=== PATIENT | female | born 1960 | race Caucasian/White ===

== ENCOUNTER 2017-10-10 11:37 | Emergency (ER) | payer BC ==
[2017-10-10 13:10] VITALS: BP 154/84
--- NOTE | 2017-10-10 13:38 | UC ---
Throat Pain/Nasal Blade HPI - HPI Summary HPI Summary: Pt c/o gradual onset nasal congestion, cough, sinus congestion X 3-4 days. C/o bilateral ear congestion - History of Current Complaint Chief Complaint: UCGeneralIllness Stated Complaint: COUGH/CONGESTION Time Seen by Provider: 10/10/17 13:14 Hx Obtained From: Patient ?: No Onset/Duration: Gradual Onset, Lasting Days Severity: Mild Pain Intensity: 0 Cough: Nonproductive Associated Signs & Symptoms: Positive: Negative Related History: Seasonal Allergies - Epiglottits Risk Factors Epiglottis Risk Factors: Negative - Allergies/Home Medications Allergies/Adverse Reactions: Allergies Allergy/AdvReac Type Severity Reaction Status Date / Time No Known Allergies Allergy Verified 03/28/16 15:05 Home Medications: Home Medications Omeprazole 40 mg PO DAILY 10/10/17 [History Confirmed 10/10/17] PMH/Surg Hx/FS Hx/Imm Hx Previously Healthy: Yes - Surgical History Surgical History: Yes Surgery Procedure, Year, and Place: Ganglion LEFT hand - Family History Known Family History: Positive: Cardiac Disease, Hypertension, Other - diabetes - Social History Occupation: Employed Full-time Lives: With Family Alcohol Use: Daily Alcohol Amount: beer or wine nightly Substance Use Type: None Smoking Status (MU): Former Smoker Have You Smoked in the Last Year: No When Did the Patient Quit Smoking/Using Tobacco: 2006 Review of Systems Constitutional: Fatigue Skin: Negative Eyes: Drainage - clear, ENT: Sinus Congestion Respiratory: Cough Cardiovascular: Negative Gastrointestinal: Negative Genitourinary: Negative Motor: Negative Neurovascular: Negative Musculoskeletal: Negative Neurological: Negative Psychological: Negative Is Patient Immunocompromised?: No All Other Systems Reviewed And Are Negative: Yes Physical Exam Triage Information Reviewed: Yes Appearance: Ill-Appearing Vital Signs: Initial Vital Signs Temp 98 F 10/10/17 13:07 Pulse 82 10/10/17 13:07 Resp 18 10/10/17 13:07 BP 154/84 10/10/17 13:07 Pulse Ox 97 10/10/17 13:07 Vital Signs Reviewed: Yes Eye Exam: Normal ENT Exam: Other ENT: Positive: Nasal congestion Dental Exam: Normal Neck exam: Normal Respiratory Exam: Normal Respiratory: Positive: Normal breath sounds Cardiovascular Exam: Normal Musculoskeletal Exam: Normal Neurological Exam: Normal Psychological Exam: Normal Skin Exam: Normal Throat Pain/Nasal Course/Dx - Differential Dx/Diagnosis Differential Diagnosis/HQI/PQRI: Influenza, Sinusitis, URI Provider Diagnoses: Seasonal allergies. Allergic rhinitis Discharge - Sign-Out/Discharge Documenting (check all that apply): Discharge/Admit/Transfer - Discharge Plan Condition: Stable Disposition: HOME Prescriptions: Benzonatate CAP* [Tessalon 100 MG CAP*] 200 mg PO Q8H PRN #30 cap PRN Reason: Cough LevoCETirizine TAB (NF) [Xyzal TAB (NF)] 5 mg PO DAILY #10 tab predniSONE TAB* [Deltasone TAB*] 30 mg PO DAILY #12 tab Patient Education Materials: Allergic Rhinitis (ED), Reactive Airways Disease ( ED) Referrals: Jeanie Londono MD [Primary Care Provider] - If Needed Additional Instructions: Please use Coricidin Brand cough and cold medications as directed on the packaging. - Billing Disposition and Condition Condition: STABLE Disposition: HOME
== END 2017-10-10 13:48 | disposition home or self-care (01) ==
LOC: UCCORT 11:37
DX: J30.2 Other seasonal allergic rhinitis (principal); J30.9 Allergic rhinitis, unspecified; Z87.891 Personal history of nicotine dependence
CPT/HCPCS: 99212; G0463